=== PATIENT | male | born 1945 | race Caucasian/White ===

== ENCOUNTER 2021-02-25 08:33 | Outpatient (CLI) | payer MEDICARE, BC | END 2021-02-25 08:34 | disposition home or self-care (01) | LOC: CSHWCC 08:33 | PROVIDERS: ATTEND Nurse Practitioner Family | DX: I87.2 Venous insufficiency (chronic) (peripheral) (principal); E11.622 Type 2 diabetes mellitus with other skin ulcer; E11.621 Type 2 diabetes mellitus with foot ulcer; L97.321 Non-pressure chronic ulcer of left ankle limited to breakdown of skin; L97.322 Non-pressure chronic ulcer of left ankle with fat layer exposed; L97.509 Non-pressure chronic ulcer of other part of unspecified foot with unspecified severity; R60.0 Localized edema; E11.40 Type 2 diabetes mellitus with diabetic neuropathy, unspecified; E11.51 Type 2 diabetes mellitus with diabetic peripheral angiopathy without gangrene; E78.2 Mixed hyperlipidemia; I21.9 Acute myocardial infarction, unspecified; I25.810 Atherosclerosis of coronary artery bypass graft(s) without angina pectoris; I69.998 Other sequelae following unspecified cerebrovascular disease; I70.203 Unspecified atherosclerosis of native arteries of extremities, bilateral legs; M13.80 Other specified arthritis, unspecified site | CPT/HCPCS: 11042; 97139; G0463; 99203 ==

== ENCOUNTER 2021-03-04 10:31 | Outpatient (CLI) | payer MEDICARE, BC | END 2021-03-04 10:32 | disposition home or self-care (01) | LOC: CSHWCC 10:31 | PROVIDERS: ATTEND Nurse Practitioner Family | DX: I87.2 Venous insufficiency (chronic) (peripheral) (principal); E11.622 Type 2 diabetes mellitus with other skin ulcer; E11.621 Type 2 diabetes mellitus with foot ulcer; L97.509 Non-pressure chronic ulcer of other part of unspecified foot with unspecified severity; L97.322 Non-pressure chronic ulcer of left ankle with fat layer exposed; L97.321 Non-pressure chronic ulcer of left ankle limited to breakdown of skin; R60.0 Localized edema; E11.51 Type 2 diabetes mellitus with diabetic peripheral angiopathy without gangrene; E11.40 Type 2 diabetes mellitus with diabetic neuropathy, unspecified; E78.2 Mixed hyperlipidemia; I21.9 Acute myocardial infarction, unspecified; I25.810 Atherosclerosis of coronary artery bypass graft(s) without angina pectoris; I69.998 Other sequelae following unspecified cerebrovascular disease; I70.203 Unspecified atherosclerosis of native arteries of extremities, bilateral legs; M13.80 Other specified arthritis, unspecified site | CPT/HCPCS: 11042; 99213; G0463 ==

== ENCOUNTER 2021-03-11 11:23 | Outpatient (CLI) | payer MEDICARE, BC | END 2021-03-11 11:24 | disposition home or self-care (01) | LOC: CSHWCC 11:23 | PROVIDERS: ATTEND Nurse Practitioner Family | DX: I87.2 Venous insufficiency (chronic) (peripheral) (principal); E11.622 Type 2 diabetes mellitus with other skin ulcer; E11.621 Type 2 diabetes mellitus with foot ulcer; L97.321 Non-pressure chronic ulcer of left ankle limited to breakdown of skin; L97.322 Non-pressure chronic ulcer of left ankle with fat layer exposed; L97.509 Non-pressure chronic ulcer of other part of unspecified foot with unspecified severity; R60.0 Localized edema; E11.51 Type 2 diabetes mellitus with diabetic peripheral angiopathy without gangrene; E11.40 Type 2 diabetes mellitus with diabetic neuropathy, unspecified; E78.2 Mixed hyperlipidemia; I21.9 Acute myocardial infarction, unspecified; I70.203 Unspecified atherosclerosis of native arteries of extremities, bilateral legs; I25.810 Atherosclerosis of coronary artery bypass graft(s) without angina pectoris; I69.998 Other sequelae following unspecified cerebrovascular disease; M13.80 Other specified arthritis, unspecified site | CPT/HCPCS: 11042; 99213; G0463 ==

== ENCOUNTER 2021-03-18 08:59 | Outpatient (CLI) | payer MEDICARE, BC | END 2021-03-18 09:00 | disposition home or self-care (01) | LOC: CSHWCC 08:59 | PROVIDERS: ATTEND Nurse Practitioner Family | DX: E11.622 Type 2 diabetes mellitus with other skin ulcer (principal); L97.321 Non-pressure chronic ulcer of left ankle limited to breakdown of skin; L97.322 Non-pressure chronic ulcer of left ankle with fat layer exposed; R60.0 Localized edema; E11.40 Type 2 diabetes mellitus with diabetic neuropathy, unspecified; E11.621 Type 2 diabetes mellitus with foot ulcer; E78.2 Mixed hyperlipidemia; I21.9 Acute myocardial infarction, unspecified; I25.810 Atherosclerosis of coronary artery bypass graft(s) without angina pectoris; I69.998 Other sequelae following unspecified cerebrovascular disease; I70.203 Unspecified atherosclerosis of native arteries of extremities, bilateral legs; I87.2 Venous insufficiency (chronic) (peripheral); M13.80 Other specified arthritis, unspecified site | CPT/HCPCS: 29581; 99213; G0463 ==

== ENCOUNTER 2021-03-25 11:18 | Outpatient (CLI) | payer MEDICARE, BC | END 2021-03-25 11:19 | disposition home or self-care (01) | LOC: CSHWCC 11:18 | PROVIDERS: ATTEND Nurse Practitioner Family | DX: I87.2 Venous insufficiency (chronic) (peripheral) (principal); E11.622 Type 2 diabetes mellitus with other skin ulcer; E11.621 Type 2 diabetes mellitus with foot ulcer; L97.321 Non-pressure chronic ulcer of left ankle limited to breakdown of skin; L97.509 Non-pressure chronic ulcer of other part of unspecified foot with unspecified severity; L97.322 Non-pressure chronic ulcer of left ankle with fat layer exposed; R60.0 Localized edema; E11.40 Type 2 diabetes mellitus with diabetic neuropathy, unspecified; E78.2 Mixed hyperlipidemia; E11.51 Type 2 diabetes mellitus with diabetic peripheral angiopathy without gangrene; I21.9 Acute myocardial infarction, unspecified; I25.810 Atherosclerosis of coronary artery bypass graft(s) without angina pectoris; I69.998 Other sequelae following unspecified cerebrovascular disease; I70.203 Unspecified atherosclerosis of native arteries of extremities, bilateral legs; M13.80 Other specified arthritis, unspecified site | CPT/HCPCS: 87070; 87077; 87186; 87205; 97139; G0463; 99213 ==

== ENCOUNTER 2021-04-01 13:36 | Outpatient (CLI) | payer MEDICARE, BC | END 2021-04-01 13:37 | disposition home or self-care (01) | LOC: CSHWCC 13:36 | PROVIDERS: ATTEND Nurse Practitioner Family | DX: E11.622 Type 2 diabetes mellitus with other skin ulcer (principal); L97.321 Non-pressure chronic ulcer of left ankle limited to breakdown of skin; L97.322 Non-pressure chronic ulcer of left ankle with fat layer exposed; R60.0 Localized edema; E11.40 Type 2 diabetes mellitus with diabetic neuropathy, unspecified; E11.621 Type 2 diabetes mellitus with foot ulcer; L97.529 Non-pressure chronic ulcer of other part of left foot with unspecified severity; E78.2 Mixed hyperlipidemia; I21.9 Acute myocardial infarction, unspecified; I25.810 Atherosclerosis of coronary artery bypass graft(s) without angina pectoris; I69.998 Other sequelae following unspecified cerebrovascular disease; I70.203 Unspecified atherosclerosis of native arteries of extremities, bilateral legs; I87.2 Venous insufficiency (chronic) (peripheral); M13.80 Other specified arthritis, unspecified site | CPT/HCPCS: 11042; 11045; 29581; 97139; G0463; 99213 ==

== ENCOUNTER 2021-04-08 07:51 | Outpatient (CLI) | payer MEDICARE, BC | END 2021-04-08 07:52 | disposition home or self-care (01) | LOC: CSHWCC 07:51 | PROVIDERS: ATTEND Nurse Practitioner Family | DX: I87.2 Venous insufficiency (chronic) (peripheral) (principal); E11.622 Type 2 diabetes mellitus with other skin ulcer; E11.621 Type 2 diabetes mellitus with foot ulcer; L97.321 Non-pressure chronic ulcer of left ankle limited to breakdown of skin; L97.322 Non-pressure chronic ulcer of left ankle with fat layer exposed; E11.51 Type 2 diabetes mellitus with diabetic peripheral angiopathy without gangrene; E11.40 Type 2 diabetes mellitus with diabetic neuropathy, unspecified; R60.0 Localized edema; I70.203 Unspecified atherosclerosis of native arteries of extremities, bilateral legs; E78.2 Mixed hyperlipidemia; I21.9 Acute myocardial infarction, unspecified; I25.810 Atherosclerosis of coronary artery bypass graft(s) without angina pectoris; I69.998 Other sequelae following unspecified cerebrovascular disease; M13.80 Other specified arthritis, unspecified site | CPT/HCPCS: 11042; 15275; 99213; G0463; Q4133 ==

== ENCOUNTER 2021-04-15 14:56 | Emergency (ER) | payer MEDICARE, BC ==
[2021-04-15] MEDS ORDERED: Morphine 4 MG/ML VIAL ONE (16:35)
[2021-04-15 17:17] LABS: #Basophils 0.1 10x3/uL (0.0-0.2); #Eosinphils 0.1 10x3/uL (0.0-0.5); #Monocytes 0.6 10x3/uL (0.0-1.1); #Neutrophils 13.2 10x3/uL (1.5-8.4); %Basophils 0.4 % (0.0-2.0); %Eosinophils 0.7 % (0.0-6.0); %Lymphocytes 8.4 % (18.0-47.0); %Monocytes 3.8 % (0.0-10.0); %Neutrophils 85.8 % (40.0-75.0); Hemoglobin 13.4 g/dL (13.5-17.5); Mean Corpuscular Hemoglobin 29.1 pg (27.0-33.0); Mean Corpuscular Volume 90.9 fl (81.2-95.1); Mean Platelet Volume 10.1 fl (7.4-10.4); Platelet Count 308 10x3/uL (150-450); RBC Distribution Width 13.9 % (11.5-14.5); Red Blood Cell (RBC) Count 4.61 10x6/uL (4.32-5.72); White Blood Cell (WBC) Count 15.3 10x3/uL (3.5-10.5)
[2021-04-15 17:23] LABS: INR-International Normal Ratio 1.1; Prothrombin Time 12.1 sec (9.5-12.1)
[2021-04-15 17:27] LABS: ALT (SGPT) 28 U/L (8-55); AST (SGOT) 30 U/L (5-34); Albumin 3.8 g/dL (3.4-4.8); Alkaline Phosphatase 109 U/L (40-110); Anion Gap 16 mmol/L (10-20); BUN (Urea Nitrogen) 23 mg/dL (8.4-25.7); Bilirubin, Total 0.7 mg/dL (0.2-1.2); Calc. Creatinine Clearance 0 mL/min (70-130); Calcium 9.5 mg/dL (7.8-10.44); Carbon Dioxide 24 mmol/L (23-31); Chloride 106 mmol/L (98-107); Globulin 3.9 g/dL (2.4-3.5); Glucose 167 mg/dL (83-110); Protein, Total 7.7 g/dL (5.8-8.1); Sodium 142 mmol/L (136-145)
== END 2021-04-15 18:52 | disposition short-term general hospital (02) ==
LOC: CSHERS 14:56
DX: S72.22XA Displaced subtrochanteric fracture of left femur, initial encounter for closed fracture (principal); E11.9 Type 2 diabetes mellitus without complications; I48.20 Chronic atrial fibrillation, unspecified; I25.10 Atherosclerotic heart disease of native coronary artery without angina pectoris; Z79.01 Long term (current) use of anticoagulants; Z79.84 Long term (current) use of oral hypoglycemic drugs; Z79.899 Other long term (current) drug therapy; W19.XXXA Unspecified fall, initial encounter
CPT/HCPCS: 70450; 71045; 72170; 80053; 85025; 85610; 85730; 93005; J2270

== ENCOUNTER 2021-07-08 13:41 | Outpatient (CLI) | payer MEDICARE | END 2021-07-08 13:42 | disposition home or self-care (01) | LOC: CSHWCC 13:41 | PROVIDERS: ATTEND Nurse Practitioner Family | DX: L89.893 Pressure ulcer of other site, stage 3 (principal); L89.616 Pressure-induced deep tissue damage of right heel; L89.96 Pressure-induced deep tissue damage of unspecified site; I87.2 Venous insufficiency (chronic) (peripheral); E11.621 Type 2 diabetes mellitus with foot ulcer; E11.622 Type 2 diabetes mellitus with other skin ulcer; L97.322 Non-pressure chronic ulcer of left ankle with fat layer exposed; E78.2 Mixed hyperlipidemia; I21.9 Acute myocardial infarction, unspecified; E11.51 Type 2 diabetes mellitus with diabetic peripheral angiopathy without gangrene; I25.810 Atherosclerosis of coronary artery bypass graft(s) without angina pectoris; E11.40 Type 2 diabetes mellitus with diabetic neuropathy, unspecified; I69.998 Other sequelae following unspecified cerebrovascular disease; I70.203 Unspecified atherosclerosis of native arteries of extremities, bilateral legs; M13.80 Other specified arthritis, unspecified site; R60.0 Localized edema; Z74.01 Bed confinement status | CPT/HCPCS: 11042; 87070; 87077; 87186; 87205; 97607; 99213; G0463 ==

== ENCOUNTER 2021-07-15 09:44 | Outpatient (CLI) | payer MEDICARE, BC | END 2021-07-15 09:45 | disposition home or self-care (01) | LOC: CSHWCC 09:44 | PROVIDERS: ATTEND Nurse Practitioner Family | DX: L89.893 Pressure ulcer of other site, stage 3 (principal); L89.616 Pressure-induced deep tissue damage of right heel; I87.2 Venous insufficiency (chronic) (peripheral); E11.622 Type 2 diabetes mellitus with other skin ulcer; E11.621 Type 2 diabetes mellitus with foot ulcer; L97.509 Non-pressure chronic ulcer of other part of unspecified foot with unspecified severity; L97.322 Non-pressure chronic ulcer of left ankle with fat layer exposed; E11.51 Type 2 diabetes mellitus with diabetic peripheral angiopathy without gangrene; E11.40 Type 2 diabetes mellitus with diabetic neuropathy, unspecified; I21.9 Acute myocardial infarction, unspecified; I25.810 Atherosclerosis of coronary artery bypass graft(s) without angina pectoris; I69.998 Other sequelae following unspecified cerebrovascular disease; I70.203 Unspecified atherosclerosis of native arteries of extremities, bilateral legs; M13.80 Other specified arthritis, unspecified site; R60.0 Localized edema; E78.2 Mixed hyperlipidemia; Z74.01 Bed confinement status | CPT/HCPCS: 11042; 11045; 97607; 99214; G0463 ==

== ENCOUNTER 2021-08-12 11:21 | Outpatient (CLI) | payer MEDICARE, BC | END 2021-08-12 11:22 | disposition home or self-care (01) | LOC: CSHWCC 11:21 | PROVIDERS: ATTEND Nurse Practitioner Family | DX: L89.893 Pressure ulcer of other site, stage 3 (principal); L89.96 Pressure-induced deep tissue damage of unspecified site; L89.616 Pressure-induced deep tissue damage of right heel; I87.2 Venous insufficiency (chronic) (peripheral); E11.621 Type 2 diabetes mellitus with foot ulcer; E11.622 Type 2 diabetes mellitus with other skin ulcer; L97.322 Non-pressure chronic ulcer of left ankle with fat layer exposed; L97.509 Non-pressure chronic ulcer of other part of unspecified foot with unspecified severity; E11.40 Type 2 diabetes mellitus with diabetic neuropathy, unspecified; E11.51 Type 2 diabetes mellitus with diabetic peripheral angiopathy without gangrene; E78.2 Mixed hyperlipidemia; I21.9 Acute myocardial infarction, unspecified; I25.810 Atherosclerosis of coronary artery bypass graft(s) without angina pectoris; I69.998 Other sequelae following unspecified cerebrovascular disease; I70.203 Unspecified atherosclerosis of native arteries of extremities, bilateral legs; M13.80 Other specified arthritis, unspecified site; R60.0 Localized edema; Z74.01 Bed confinement status | CPT/HCPCS: 11042; 97607; 99214; G0463 ==

== ENCOUNTER 2021-09-16 11:10 | Outpatient (CLI) | payer MEDICARE | END 2021-09-16 11:11 | disposition home or self-care (01) | LOC: CSHWCC 11:10 | PROVIDERS: ATTEND Nurse Practitioner Family | DX: E11.621 Type 2 diabetes mellitus with foot ulcer (principal); E11.40 Type 2 diabetes mellitus with diabetic neuropathy, unspecified; E78.2 Mixed hyperlipidemia; I21.9 Acute myocardial infarction, unspecified; I25.810 Atherosclerosis of coronary artery bypass graft(s) without angina pectoris; I69.998 Other sequelae following unspecified cerebrovascular disease; I87.2 Venous insufficiency (chronic) (peripheral); L89.520 Pressure ulcer of left ankle, unstageable; L89.610 Pressure ulcer of right heel, unstageable; L89.616 Pressure-induced deep tissue damage of right heel; L89.622 Pressure ulcer of left heel, stage 2; L89.896 Pressure-induced deep tissue damage of other site; L89.94 Pressure ulcer of unspecified site, stage 4; M13.80 Other specified arthritis, unspecified site; R60.0 Localized edema; S81.802A Unspecified open wound, left lower leg, initial encounter; Z74.01 Bed confinement status; L97.509 Non-pressure chronic ulcer of other part of unspecified foot with unspecified severity | CPT/HCPCS: 11042; 97139; 97607; G0463; 99214 ==

== ENCOUNTER 2021-09-24 08:58 | Outpatient (CLI) | payer MEDICARE, BC | END 2021-09-24 08:59 | disposition home or self-care (01) | LOC: CSHWCC 08:58 | PROVIDERS: ATTEND Nurse Practitioner Family | DX: L89.894 Pressure ulcer of other site, stage 4 (principal); E11.40 Type 2 diabetes mellitus with diabetic neuropathy, unspecified; E11.621 Type 2 diabetes mellitus with foot ulcer; E78.2 Mixed hyperlipidemia; I21.9 Acute myocardial infarction, unspecified; I25.810 Atherosclerosis of coronary artery bypass graft(s) without angina pectoris; I69.998 Other sequelae following unspecified cerebrovascular disease; I70.203 Unspecified atherosclerosis of native arteries of extremities, bilateral legs; I87.2 Venous insufficiency (chronic) (peripheral); L89.520 Pressure ulcer of left ankle, unstageable; L89.610 Pressure ulcer of right heel, unstageable; L89.616 Pressure-induced deep tissue damage of right heel; L89.896 Pressure-induced deep tissue damage of other site; L89.94 Pressure ulcer of unspecified site, stage 4; M13.80 Other specified arthritis, unspecified site; R60.0 Localized edema; Z74.01 Bed confinement status; S81.802A Unspecified open wound, left lower leg, initial encounter | CPT/HCPCS: 11043; 97139; 97605; G0463; 99214 ==

== ENCOUNTER 2021-10-08 11:16 | Outpatient (CLI) | payer MEDICARE, BC | END 2021-10-08 11:17 | disposition home or self-care (01) | LOC: CSHWCC 11:16 | PROVIDERS: ATTEND Nurse Practitioner Family | DX: L89.894 Pressure ulcer of other site, stage 4 (principal); L89.524 Pressure ulcer of left ankle, stage 4; L89.893 Pressure ulcer of other site, stage 3; L89.892 Pressure ulcer of other site, stage 2; L89.610 Pressure ulcer of right heel, unstageable; I87.2 Venous insufficiency (chronic) (peripheral); E11.621 Type 2 diabetes mellitus with foot ulcer; L97.509 Non-pressure chronic ulcer of other part of unspecified foot with unspecified severity; S91.202D Unspecified open wound of left great toe with damage to nail, subsequent encounter; R60.0 Localized edema; E11.40 Type 2 diabetes mellitus with diabetic neuropathy, unspecified; E78.2 Mixed hyperlipidemia; I21.9 Acute myocardial infarction, unspecified; I25.810 Atherosclerosis of coronary artery bypass graft(s) without angina pectoris; I69.998 Other sequelae following unspecified cerebrovascular disease; M13.80 Other specified arthritis, unspecified site; Z74.01 Bed confinement status | CPT/HCPCS: 11042; 97139; G0463; 99213 ==

== ENCOUNTER 2021-10-21 11:06 | Outpatient (CLI) | payer SELFPAY | END 2021-10-21 11:07 | disposition home or self-care (01) | LOC: CSHWCC 11:06 | PROVIDERS: ATTEND Nurse Practitioner Family | DX: L89.524 Pressure ulcer of left ankle, stage 4 (principal); L89.894 Pressure ulcer of other site, stage 4; L89.893 Pressure ulcer of other site, stage 3; L89.892 Pressure ulcer of other site, stage 2; L89.620 Pressure ulcer of left heel, unstageable; L89.610 Pressure ulcer of right heel, unstageable; E11.621 Type 2 diabetes mellitus with foot ulcer; I87.2 Venous insufficiency (chronic) (peripheral); S91.202D Unspecified open wound of left great toe with damage to nail, subsequent encounter; L97.509 Non-pressure chronic ulcer of other part of unspecified foot with unspecified severity; E11.51 Type 2 diabetes mellitus with diabetic peripheral angiopathy without gangrene; E11.40 Type 2 diabetes mellitus with diabetic neuropathy, unspecified; E78.2 Mixed hyperlipidemia; I21.9 Acute myocardial infarction, unspecified; I25.810 Atherosclerosis of coronary artery bypass graft(s) without angina pectoris; I69.998 Other sequelae following unspecified cerebrovascular disease; I70.203 Unspecified atherosclerosis of native arteries of extremities, bilateral legs; M13.80 Other specified arthritis, unspecified site; R60.0 Localized edema; Z74.01 Bed confinement status | CPT/HCPCS: 11043; 99214; G0463 ==

== ENCOUNTER 2021-11-25 10:11 | Outpatient (CLI) | payer MEDICARE, BC | END 2021-11-25 10:12 | disposition home or self-care (01) | LOC: CSHWCC 10:11 | PROVIDERS: ATTEND Nurse Practitioner Family | DX: L89.524 Pressure ulcer of left ankle, stage 4 (principal); E11.40 Type 2 diabetes mellitus with diabetic neuropathy, unspecified; E11.621 Type 2 diabetes mellitus with foot ulcer; E78.2 Mixed hyperlipidemia; I21.9 Acute myocardial infarction, unspecified; I25.810 Atherosclerosis of coronary artery bypass graft(s) without angina pectoris; I69.998 Other sequelae following unspecified cerebrovascular disease; I70.203 Unspecified atherosclerosis of native arteries of extremities, bilateral legs; I87.2 Venous insufficiency (chronic) (peripheral); L89.610 Pressure ulcer of right heel, unstageable; L89.620 Pressure ulcer of left heel, unstageable; L89.894 Pressure ulcer of other site, stage 4; M13.80 Other specified arthritis, unspecified site; R60.0 Localized edema; Z74.01 Bed confinement status | CPT/HCPCS: 11042; 11045; 97139; G0463; 99213; 99214 ==

== ENCOUNTER 2021-12-16 15:05 | Outpatient (CLI) | payer MEDICARE, BC | END 2021-12-16 15:06 | disposition home or self-care (01) | LOC: CSHWCC 15:05 | PROVIDERS: ATTEND Nurse Practitioner Family | DX: L89.524 Pressure ulcer of left ankle, stage 4 (principal); E11.40 Type 2 diabetes mellitus with diabetic neuropathy, unspecified; E11.621 Type 2 diabetes mellitus with foot ulcer; E78.2 Mixed hyperlipidemia; I21.9 Acute myocardial infarction, unspecified; I25.810 Atherosclerosis of coronary artery bypass graft(s) without angina pectoris; I69.998 Other sequelae following unspecified cerebrovascular disease; I70.203 Unspecified atherosclerosis of native arteries of extremities, bilateral legs; I87.2 Venous insufficiency (chronic) (peripheral); L89.894 Pressure ulcer of other site, stage 4; L89.610 Pressure ulcer of right heel, unstageable; L89.620 Pressure ulcer of left heel, unstageable; M13.80 Other specified arthritis, unspecified site; R60.0 Localized edema; Z74.01 Bed confinement status | CPT/HCPCS: 97139; G0463; 99214 ==

== ENCOUNTER 2022-01-14 14:43 | Inpatient (IN) | payer MEDICARE, BC ==
[2022-01-14 15:46] LABS: #Eosinphils 0.2 10x3/uL (0.0-0.5); #Monocytes 0.6 10x3/uL (0.0-1.1); #Neutrophils 7.8 10x3/uL (1.5-8.4); %Basophils 0.4 % (0.0-2.0); %Eosinophils 1.6 % (0.0-6.0); %Lymphocytes 15.4 % (18.0-47.0); %Monocytes 5.4 % (0.0-10.0); %Neutrophils 76.5 % (40.0-75.0); Mean Corpuscular HGB CONC 32.1 g/dL (32.0-36.0); Mean Corpuscular Volume 93.3 fl (81.2-95.1); Platelet Count 254 10x3/uL (150-450); Red Blood Cell (RBC) Count 2.67 10x6/uL (4.32-5.72); White Blood Cell (WBC) Count 10.2 10x3/uL (3.5-10.5)
[2022-01-14 16:01] LABS: INR-International Normal Ratio 1.4; PTT 47.8 sec (22.0-33.0); Prothrombin Time 15.1 sec (9.5-12.1)
[2022-01-14 16:05] LABS: ALT (SGPT) 8 U/L (8-55); AST (SGOT) 12 U/L (5-34); Albumin 1.5 g/dL (3.4-4.8); Alkaline Phosphatase 90 U/L (40-110); Anion Gap 11 mmol/L (10-20); BUN (Urea Nitrogen) 21 mg/dL (8.4-25.7); Bilirubin, Total 0.5 mg/dL (0.2-1.2); Calc. Creatinine Clearance 0 mL/min (70-130); Calcium 7.3 mg/dL (7.8-10.44); Carbon Dioxide 24 mmol/L (23-31); Chloride 109 mmol/L (98-107); Glucose 94 mg/dL (83-110); Potassium 3.7 mmol/L (3.5-5.1); Protein, Total 3.5 g/dL (5.8-8.1); Sodium 140 mmol/L (136-145)
[2022-01-14 16:53] LABS: Bilirubin Neg (Negative); Blood, Urine 250 (Negative); Clarity Cloudy (Clear); Glucose, Urine (Dipstick) Normal (Negative); Ketone, Urine Negative (Negative); Leukocyte 500 (Negative); Nitrite Negative (Negative); Protein, Urine (Dipstick) 100 mg/dl (Neg-Trace); Specific Gravity, Urine 1.025 (1.002-1.036)
[2022-01-14 17:05] LABS: RBC/HPF 0-3 HPF (0-3); Squamous Epithelial 0-3 HPF (0-3); WBC/HPF Greater than 50 HPF (0-3)
[2022-01-14 17:06] LABS: Bacteria/HPF 1+ HPF (None Seen); Yeast-Budding 1+ HPF (None Seen)
[2022-01-14] MEDS ORDERED: cefTRIAXone\\ROCEPHIN 2 GM VIAL ONE (17:25)
[2022-01-14] MEDS ORDERED: Acetaminophen 325 MG TAB PO PRN (17:26)
[2022-01-14] MEDS ORDERED: Calcium Carbonate 500 MG ChewTAB PO PRN (17:26)
[2022-01-14] MEDS ORDERED: Dextrose 5% in Water 1,000 ML IV PRN (17:26)
[2022-01-14] MEDS ORDERED: Dextrose 50% Abboject 50 ML SYRINGE SLOW IVP PRN (17:26)
[2022-01-14] MEDS ORDERED: HumaLOG 300 UNITS/3 ML VIAL SC PRN ×2 (17:26)
[2022-01-14] MEDS ORDERED: Ondansetron ODT 4 MG TAB PO PRN (17:26)
[2022-01-14] MEDS ORDERED: Senokot S 8.6-50 MG TAB PO PRN (17:26)
[2022-01-14] MEDS ORDERED: Lactated Ringer's 1,000 ML IV SCH (17:30)
[2022-01-14 17:59] LABS: Iron 29 ug/dL (65-175); Iron Binding Capacity, Total 73 mcg/dL (261-462)
[2022-01-14] MEDS ORDERED: Fentanyl 100 MCG/2 ML VIAL ONE (18:19)
[2022-01-14] MEDS ORDERED: Ondansetron PF 4 MG/2 ML Vial ONE (18:19)
[2022-01-14 18:22] LABS: Ferritin 207.68 ng/mL (22-322)
[2022-01-14 19:08] LABS: SARS-CoV-2 NAA Rapid Test Not Detected (NotDetected)
[2022-01-14 19:41] LABS: Lactic Acid 2.5 mmol/L (0.5-2.2)
[2022-01-14 20:26] VITALS: BMI 18.0
[2022-01-14 21:44] LABS: Hemoglobin 8.8 g/dL (13.5-17.5)
[2022-01-15 04:02] LABS: #Eosinphils 0.2 10x3/uL (0.0-0.5); #Monocytes 0.6 10x3/uL (0.0-1.1); #Neutrophils 7.1 10x3/uL (1.5-8.4); %Basophils 0.4 % (0.0-2.0); %Eosinophils 1.8 % (0.0-6.0); %Lymphocytes 16.9 % (18.0-47.0); %Monocytes 5.8 % (0.0-10.0); %Neutrophils 74.3 % (40.0-75.0); Hemoglobin 8.7 g/dL (13.5-17.5); Mean Corpuscular HGB CONC 35.7 g/dL (32.0-36.0); Mean Corpuscular Hemoglobin 34.4 pg (27.0-33.0); Mean Corpuscular Volume 96.4 fl (81.2-95.1); Mean Platelet Volume 10.1 fl (7.4-10.4); Platelet Count 252 10x3/uL (150-450); RBC Distribution Width 15.5 % (11.5-14.5); Red Blood Cell (RBC) Count 2.53 10x6/uL (4.32-5.72); White Blood Cell (WBC) Count 9.6 10x3/uL (3.5-10.5)
[2022-01-15 05:43] LABS: ALT (SGPT) 10 U/L (8-55); AST (SGOT) 17 U/L (5-34); Albumin 1.7 g/dL (3.4-4.8); Alkaline Phosphatase 98 U/L (40-110); Anion Gap 10 mmol/L (10-20); BUN (Urea Nitrogen) 21 mg/dL (8.4-25.7); Bilirubin, Total 0.5 mg/dL (0.2-1.2); Calc. Creatinine Clearance 67 mL/min (70-130); Calcium 7.9 mg/dL (7.8-10.44); Carbon Dioxide 23 mmol/L (23-31); Chloride 111 mmol/L (98-107); Globulin 2.9 g/dL (2.4-3.5); Glucose 72 mg/dL (83-110); Magnesium 1.5 mg/dL (1.6-2.6); Potassium 3.5 mmol/L (3.5-5.1); Protein, Total 4.6 g/dL (5.8-8.1); Sodium 140 mmol/L (136-145)
[2022-01-15] MEDS: Dextrose 5% in Water 1,000 ML IV SCH ×2 (08:04→17:44)
[2022-01-15] MEDS ORDERED: Magnesium Sulfate 2 GM in Sodium Chloride 0.9% 100 ML IVPB SCH (08:30)
[2022-01-15] MEDS ORDERED: Magnesium 2 GM/50 ML 2 GM in Premix Bag 1 BAG IVPB SCH (08:45)
[2022-01-15] MEDS ORDERED: Magnesium 2 GM/50 ML BAG (IN WATER) ONE (09:49)
[2022-01-15] MEDS ORDERED: cefTRIAXone\\ROCEPHIN 1 GM in Sodium Chloride 0.9% 100 ML IVPB SCH (17:00)
[2022-01-15] MEDS: Apixaban 5 MG TAB PO SCH (20:16)
[2022-01-16] MEDS: Dextrose 5% in Water 1,000 ML IV SCH ×2 (06:05→16:19)
[2022-01-16 08:17] LABS: #Eosinphils 0.3 10x3/uL (0.0-0.5); #Monocytes 0.6 10x3/uL (0.0-1.1); #Neutrophils 5.7 10x3/uL (1.5-8.4); %Basophils 0.3 % (0.0-2.0); %Eosinophils 2.9 % (0.0-6.0); %Lymphocytes 23.1 % (18.0-47.0); %Monocytes 7.2 % (0.0-10.0); %Neutrophils 65.7 % (40.0-75.0); Hemoglobin 8.6 g/dL (13.5-17.5); Mean Corpuscular HGB CONC 36.1 g/dL (32.0-36.0); Mean Corpuscular Hemoglobin 36.3 pg (27.0-33.0); Mean Corpuscular Volume 100.4 fl (81.2-95.1); Mean Platelet Volume 9.9 fl (7.4-10.4); Platelet Count 264 10x3/uL (150-450); RBC Distribution Width 16.2 % (11.5-14.5); Red Blood Cell (RBC) Count 2.37 10x6/uL (4.32-5.72); White Blood Cell (WBC) Count 8.7 10x3/uL (3.5-10.5)
[2022-01-16 08:35] LABS: Anion Gap 12 mmol/L (10-20); BUN (Urea Nitrogen) 17 mg/dL (8.4-25.7); Calc. Creatinine Clearance 70 mL/min (70-130); Calcium 7.9 mg/dL (7.8-10.44); Carbon Dioxide 20 mmol/L (23-31); Chloride 107 mmol/L (98-107); Glucose 93 mg/dL (83-110); Magnesium 1.9 mg/dL (1.6-2.6); Potassium 3.9 mmol/L (3.5-5.1); Sodium 135 mmol/L (136-145)
[2022-01-16] MEDS: Apixaban 5 MG TAB PO SCH ×2 (10:02→21:20)
[2022-01-16] MEDS ORDERED: hydrOXYzine 25 MG TAB PO PRN (10:47)
[2022-01-16] MEDS ORDERED: Carvedilol 3.125 MG TAB PO SCH (11:39)
[2022-01-16] MEDS ORDERED: Magnesium 2 GM/50 ML 2 GM in Premix Bag 1 BAG IVPB SCH (12:00)
[2022-01-16] MEDS ORDERED: Magnesium Oxide 400 MG TAB PO SCH (12:15)
[2022-01-16] MEDS ORDERED: Metoprolol Tartrate 25 MG TAB PO SCH (12:15)
[2022-01-16] MEDS: Potassium Bicarbonate/Cit Ac 20 MEQ TAB PO SCH ×2 (12:30→16:25)
[2022-01-16] MEDS ORDERED: Gabapentin 300 MG CAP PO SCH (15:00)
[2022-01-16] MEDS ORDERED: cefTRIAXone\\ROCEPHIN 2 GM in Sodium Chloride 0.9% 100 ML IVPB SCH (17:00)
[2022-01-16] MEDS: Atorvastatin Calcium 40 MG TAB PO SCH (21:19)
[2022-01-16] MEDS: Gabapentin 300 MG CAP PO SCH (21:19)
[2022-01-16] MEDS: Cholecalciferol 1,000 UNITS (25 MCG) TAB PO SCH (21:20)
[2022-01-16] MEDS: Latanoprost 0.005% Ophth Soln 2.5 ml Bottle EA EYE SCH (21:20)
[2022-01-16] MEDS: Metoprolol Tartrate 25 MG TAB PO SCH ×2 (21:21→21:45)
[2022-01-17 05:34] LABS: #Eosinphils 0.3 10x3/uL (0.0-0.5); #Monocytes 0.6 10x3/uL (0.0-1.1); #Neutrophils 4.5 10x3/uL (1.5-8.4); %Basophils 0.4 % (0.0-2.0); %Eosinophils 3.9 % (0.0-6.0); %Lymphocytes 28.6 % (18.0-47.0); %Monocytes 7.6 % (0.0-10.0); %Neutrophils 58.6 % (40.0-75.0); Hemoglobin 9.2 g/dL (13.5-17.5); Mean Corpuscular HGB CONC 34.1 g/dL (32.0-36.0); Mean Corpuscular Hemoglobin 31.8 pg (27.0-33.0); Mean Corpuscular Volume 93.4 fl (81.2-95.1); Mean Platelet Volume 10.1 fl (7.4-10.4); Platelet Count 290 10x3/uL (150-450); RBC Distribution Width 14.7 % (11.5-14.5); Red Blood Cell (RBC) Count 2.89 10x6/uL (4.32-5.72); White Blood Cell (WBC) Count 7.7 10x3/uL (3.5-10.5)
[2022-01-17 05:47] LABS: Anion Gap 10 mmol/L (10-20); BUN (Urea Nitrogen) 13 mg/dL (8.4-25.7); Calc. Creatinine Clearance 73 mL/min (70-130); Calcium 7.9 mg/dL (7.8-10.44); Carbon Dioxide 26 mmol/L (23-31); Chloride 107 mmol/L (98-107); Glucose 95 mg/dL (83-110); Magnesium 2.1 mg/dL (1.6-2.6); Phosphorus 2.9 mg/dL (2.3-4.7); Potassium 3.7 mmol/L (3.5-5.1); Sodium 139 mmol/L (136-145)
[2022-01-17] MEDS ORDERED: Ampicillin/Sulbactam 3 GM in Sodium Chloride 0.9% 100 ML IVPB SCH (07:35)
[2022-01-17] MEDS ORDERED: AMPICILLIN SLOW IVP SCH ×2 (08:18→08:21)
[2022-01-17] MEDS: Magnesium Oxide 400 MG TAB PO SCH (10:20)
[2022-01-17] MEDS: DULoxetine 30 MG CAP PO SCH (10:22)
[2022-01-17] MEDS: Metoprolol Tartrate 25 MG TAB PO SCH ×2 (10:22→22:30)
[2022-01-17] MEDS: Apixaban 5 MG TAB PO SCH ×2 (10:22→22:28)
[2022-01-17] MEDS: Clopidogrel Bisulfate 75 MG TAB PO SCH (10:22)
[2022-01-17] MEDS ORDERED: Potassium Chloride 20 MEQ TAB PO SCH (12:00)
[2022-01-17 12:02] LABS: Hemoglobin A1c 4.9 % (4.0-6.0)
[2022-01-17] MEDS ORDERED: Potassium Chloride 20 MEQ in Premix Bag 1 BAG IVPB SCH (12:30)
[2022-01-17] MEDS ORDERED: Albumin 25% 25 GM/100 ML BOT IVPB SCH (22:00)
[2022-01-17] MEDS: Cholecalciferol 1,000 UNITS (25 MCG) TAB PO SCH (22:27)
[2022-01-17] MEDS: Atorvastatin Calcium 40 MG TAB PO SCH (22:28)
[2022-01-17] MEDS: Gabapentin 300 MG CAP PO SCH (22:28)
[2022-01-18] MEDS ORDERED: Sodium Chloride 0.9% 250 ML IV SCH (00:30)
[2022-01-18] MEDS: Latanoprost 0.005% Ophth Soln 2.5 ml Bottle EA EYE SCH ×2 (01:32→21:43)
[2022-01-18] MEDS: Apixaban 5 MG TAB PO SCH ×3 (02:22→21:43)
[2022-01-18] MEDS: Cholecalciferol 1,000 UNITS (25 MCG) TAB PO SCH ×2 (02:22→21:43)
[2022-01-18] MEDS: Atorvastatin Calcium 40 MG TAB PO SCH ×2 (02:22→21:43)
[2022-01-18] MEDS: Gabapentin 300 MG CAP PO SCH ×2 (02:22→21:42)
[2022-01-18 05:30] LABS: #Eosinphils 0.2 10x3/uL (0.0-0.5); #Monocytes 0.4 10x3/uL (0.0-1.1); #Neutrophils 3.9 10x3/uL (1.5-8.4); %Basophils 0.3 % (0.0-2.0); %Eosinophils 2.8 % (0.0-6.0); %Lymphocytes 20.9 % (18.0-47.0); %Monocytes 7.1 % (0.0-10.0); Mean Corpuscular HGB CONC 33.3 g/dL (32.0-36.0); Mean Corpuscular Hemoglobin 31.4 pg (27.0-33.0); Mean Corpuscular Volume 94.1 fl (81.2-95.1); Mean Platelet Volume 9.7 fl (7.4-10.4); Platelet Count 216 10x3/uL (150-450); RBC Distribution Width 14.6 % (11.5-14.5); Red Blood Cell (RBC) Count 2.55 10x6/uL (4.32-5.72); White Blood Cell (WBC) Count 5.8 10x3/uL (3.5-10.5)
[2022-01-18 05:41] LABS: Anion Gap 8 mmol/L (10-20); BUN (Urea Nitrogen) 13 mg/dL (8.4-25.7); Calc. Creatinine Clearance 80 mL/min (70-130); Calcium 7.8 mg/dL (7.8-10.44); Carbon Dioxide 26 mmol/L (23-31); Chloride 109 mmol/L (98-107); Glucose 115 mg/dL (83-110); Magnesium 1.9 mg/dL (1.6-2.6); Phosphorus 1.9 mg/dL (2.3-4.7); Potassium 4.1 mmol/L (3.5-5.1); Sodium 139 mmol/L (136-145)
[2022-01-18] MEDS ORDERED: Sodium Chloride 0.9% 1,000 ML IV SCH (06:00)
[2022-01-18] MEDS ORDERED: Potassium Phosphate 30 MMOL in Sodium Chloride 0.9% 500 ML IVPB SCH (07:30)
[2022-01-18] MEDS: PHOS-NAK 1 PKT PACK PO SCH ×3 (10:04→16:06)
[2022-01-18] MEDS: DULoxetine 30 MG CAP PO SCH (10:04)
[2022-01-18] MEDS: Magnesium Oxide 400 MG TAB PO SCH (10:04)
[2022-01-18] MEDS: Clopidogrel Bisulfate 75 MG TAB PO SCH (10:04)
[2022-01-18] MEDS: Metoprolol Tartrate 25 MG TAB PO SCH ×2 (10:05→21:36)
[2022-01-19 05:11] LABS: #Eosinphils 0.3 10x3/uL (0.0-0.5); #Monocytes 0.6 10x3/uL (0.0-1.1); #Neutrophils 4.6 10x3/uL (1.5-8.4); %Basophils 0.3 % (0.0-2.0); %Eosinophils 3.6 % (0.0-6.0); %Lymphocytes 27.5 % (18.0-47.0); %Monocytes 8.2 % (0.0-10.0); %Neutrophils 59.6 % (40.0-75.0); Hemoglobin 7.8 g/dL (13.5-17.5); Mean Corpuscular HGB CONC 32.5 g/dL (32.0-36.0); Mean Corpuscular Hemoglobin 31.8 pg (27.0-33.0); Mean Platelet Volume 10.1 fl (7.4-10.4); Platelet Count 235 10x3/uL (150-450); RBC Distribution Width 14.9 % (11.5-14.5); Red Blood Cell (RBC) Count 2.45 10x6/uL (4.32-5.72); White Blood Cell (WBC) Count 7.7 10x3/uL (3.5-10.5)
[2022-01-19 05:37] LABS: Anion Gap 11 mmol/L (10-20); BUN (Urea Nitrogen) 12 mg/dL (8.4-25.7); Calc. Creatinine Clearance 77 mL/min (70-130); Calcium 7.8 mg/dL (7.8-10.44); Carbon Dioxide 26 mmol/L (23-31); Chloride 109 mmol/L (98-107); Glucose 102 mg/dL (83-110); Magnesium 1.8 mg/dL (1.6-2.6); Potassium 4.7 mmol/L (3.5-5.1); Sodium 141 mmol/L (136-145)
[2022-01-19] MEDS: PHOS-NAK 1 PKT PACK PO SCH ×2 (10:07→11:43)
[2022-01-19] MEDS: Metoprolol Tartrate 25 MG TAB PO SCH (10:08)
[2022-01-19] MEDS: DULoxetine 30 MG CAP PO SCH (10:08)
[2022-01-19] MEDS: Magnesium Oxide 400 MG TAB PO SCH (10:08)
[2022-01-19] MEDS: Clopidogrel Bisulfate 75 MG TAB PO SCH (10:53)
[2022-01-19] MEDS: Apixaban 5 MG TAB PO SCH (10:54)
[2022-01-19 12:35] VITALS: BP 109/58; TEMP 97
== END 2022-01-19 15:35 | DRG 871 ==
LOC: CSHERS 14:43 → CSHIMCU 19:58 → CSHTELE 01-16 05:53
PROVIDERS: ADMIT Student in an Organized Health Care Education/Training Program; ATTEND Family Medicine
DX: A41.9 Sepsis, unspecified organism (principal); E43 Unspecified severe protein-calorie malnutrition; N39.0 Urinary tract infection, site not specified; Z68.1 Body mass index [BMI] 19.9 or less, adult; I48.11 Longstanding persistent atrial fibrillation; Z20.822 Contact with and (suspected) exposure to COVID-19; I25.10 Atherosclerotic heart disease of native coronary artery without angina pectoris; I50.9 Heart failure, unspecified; E88.09 Other disorders of plasma-protein metabolism, not elsewhere classified; E78.5 Hyperlipidemia, unspecified; I11.0 Hypertensive heart disease with heart failure; E11.622 Type 2 diabetes mellitus with other skin ulcer; L98.499 Non-pressure chronic ulcer of skin of other sites with unspecified severity; I95.9 Hypotension, unspecified; D63.8 Anemia in other chronic diseases classified elsewhere; E11.51 Type 2 diabetes mellitus with diabetic peripheral angiopathy without gangrene; Z86.73 Personal history of transient ischemic attack (TIA), and cerebral infarction without residual deficits
CPT/HCPCS: 36415; 36416; 71045; 76770; 76856; 80048; 80053; 81003; 81015; 82533; 82607; 82728; 82746; 83036; 83540; 83550; 83605; 83735; 84100; 84134; 84443; 84484; 85025; 85046; 85610; 85730; 86850; 86900; 86901; 87040; 87077; 87086; 87186; 93005; 93010; 96365; J0290; J0696; J2405; J3010; J3475; J3480; J3490; J7030; J7050; J7070; J7120; P9047; U0002